=== PATIENT | female | born 1990 | race Caucasian/White ===

== ENCOUNTER 2017-01-08 10:52 | Inpatient (IN) | payer BC, OTHER ==
[2017-01-08] MEDS ORDERED: Misoprostol 25 MCG (1/4 of 100 MCG) Tab VAG PRN (12:10)
[2017-01-08] MEDS ORDERED: Terbutaline 1 MG/ML SDV SUBCUT PRN (12:10)
[2017-01-08] MEDS ORDERED: Butorphanol 1 MG/ML SDV IVPUSH PRN (12:15)
[2017-01-08] MEDS ORDERED: Sodium Chloride 0.9% 10 ML Syringe FLUSH PRN (12:15)
[2017-01-08] MEDS ORDERED: Lidocaine 1% 50 ML MDV INJECT PRN (12:15)
[2017-01-08] MEDS ORDERED: Lactated Ringers 1,000 ML IV SCH (12:15)
[2017-01-08] MEDS ORDERED: Oxytocin/0.9 % Sodium Chloride 30 UNIT/500 ML BAG IV SCH ×2 (12:15)
[2017-01-08] MEDS ORDERED: Sodium Chloride 0.9% 2.5 ML Syringe FLUSH PRN (12:15)
[2017-01-08] MEDS ORDERED: Methylergonovine 0.2 MG/1 ML Amp IM PRN (12:15)
[2017-01-08] MEDS ORDERED: Water For Irrigation,Sterile 1,000 ML Container IRR PRN (12:15)
[2017-01-08] MEDS ORDERED: Misoprostol 200 MCG Tab PO PRN (12:15)
[2017-01-08] MEDS ORDERED: Misoprostol 25 MCG (1/4 of 100 MCG) Tab PO SCH (12:15)
[2017-01-08] MEDS ORDERED: Nalbuphine 10 MG/1 ML Vial IVPUSH PRN (12:15)
[2017-01-08] MEDS ORDERED: Carboprost Tromethamine 250 MCG/1 ML Amp IM PRN (12:15)
[2017-01-08] MEDS ORDERED: Misoprostol 25 MCG (1/4 of 100 MCG) Tab VAG SCH (12:15)
[2017-01-08] MEDS: Sodium Chloride 0.9% 1,000 ML IV SCH ×3 (12:35→20:17)
[2017-01-08] MEDS ORDERED: fentaNYL 100 MCG/2 ML SDV ONE (18:53)
[2017-01-08] MEDS ORDERED: Ropivacaine HCl/PF 100 ML ONE (18:54)
[2017-01-08] MEDS ORDERED: Ropivacaine 0.2% 2 MG/ML 20 ML SDV ONE (18:55)
--- NOTE | 2017-01-08 19:57 | PCM.PREANE ---
Preanesthetic Assessment - Anesthesia/Transfusion/Family Hx Anesthesia History: Prior Anesthesia Without Reaction Family History of Anesthesia Reaction: No Transfusion History: No Prior Transfusion(s) - Review of Systems General: No Symptoms Pulmonary: No Symptoms Cardiovascular: No Symptoms Gastrointestinal: No Symptoms Neurological: No Symptoms Other: Reports: None - Physical Assessment Height: 1.52 m Weight: 87.09 kg ASA Class: 2 Mental Status: Alert & Oriented x3 Airway Class: Mallampati = 2 Dentition: Reports: Normal Dentition - Lab Values: Laboratory Last Values WBC 17.02 K/uL (4.0-11.0) H 01/08/17 12:33 RBC 4.37 M/uL (4.30-5.90) 01/08/17 12:33 Hgb 13.0 g/dL (12.0-16.0) 01/08/17 12:33 Hct 39.0 % (36.0-46.0) 01/08/17 12:33 MCV 89.2 fL (80.0-98.0) 01/08/17 12:33 MCH 29.7 pg (27.0-32.0) 01/08/17 12:33 MCHC 33.3 g/dL (31.0-37.0) 01/08/17 12:33 RDW Std Deviation 49.3 fl (28.0-62.0) 01/08/17 12:33 RDW Coeff of Leena 15 % (11.0-15.0) 01/08/17 12:33 Plt Count 236 K/uL (150-400) 01/08/17 12:33 MPV 12.40 fL (7.40-12.00) H 01/08/17 12:33 Nucleated RBC % 0.0 /100WBC 01/08/17 12:33 Nucleated RBCs # 0 K/uL 01/08/17 12:33 POC Glucose 71 mg/dL (60-110) 01/08/17 18:15 Membrane Rupture POSITIVE 01/08/17 11:02 Blood Type O POSITIVE 01/08/17 12:33 Antibody Screen NEGATIVE 01/08/17 12:33 - Allergies Allergies/Adverse Reactions: Allergies Allergy/AdvReac Type Severity Reaction Status Date / Time Penicillins Allergy Hives Verified 01/08/17 10:59 - Acknowledgements Anesthesia Type Planned: Epidural Pt an Appropriate Candidate for the Planned Anesthesia: Yes Alternatives and Risks of Anesthesia Discussed w Pt/Guardian: Yes Pt/Guardian Understands and Agrees with Anesthesia Plan: Yes Additional Comments: Patient denies any concerns or questions at this time and agrees to proceed. 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: Endocrine/Metabolic History: Reports: Diabetes, Gestational - Past Surgical History HEENT Surgical History: Reports: Adenoidectomy - SUBSTANCE USE Smoking Status *Q: Never Smoker - CURRENT (IN HOUSE) MEDS Current Meds: Current Medications Butorphanol Tartrate (Stadol) 1 mg IVPUSH Q1H PRN PRN Reason: Pain Last Admin: 01/08/17 17:31 Dose: 1 mg Carboprost Tromethamine (Hemabate Ds) 250 mcg IM ASDIRECTED PRN PRN Reason: Post Hemorrhage Oxytocin/Sodium Chloride (Oxytocin 30 Unit/500 Ml-Ns) 30 unit in 500 mls @ 2 mls/hr IV TITRATE PARKER; 2 MUNITS/MIN PRN Reason: Protocol Last Titration: 01/08/17 19:47 Dose: 2 munits/min, 2 mls/hr Oxytocin/Sodium Chloride (Oxytocin 30 Unit/500 Ml-Ns) 30 unit in 500 mls @ 999 mls/hr IV TITRATE PARKER Sodium Chloride (Normal Saline) 1,000 mls @ 80 mls/hr IV ASDIRECTED PARKER Last Admin: 01/08/17 19:03 Dose: 999 mls/hr Lidocaine HCl (Xylocaine 1%) 50 ml INJECT .ONCE PRN PRN Reason: Laceration repair Methylergonovine Maleate (Methergine) 0.2 mg IM ASDIRECTED PRN PRN Reason: Post Hemorrhage Misoprostol (Cytotec) 25 mcg VAG .ONCE PARKER Last Admin: 01/08/17 13:09 Dose: 25 mcg Misoprostol (Cytotec) 25 mcg VAG Q4H PRN PRN Reason: Cervical Ripening Misoprostol (Cytotec) 25 mcg PO .ONCE PARKER Last Admin: 01/08/17 13:16 Dose: 25 mcg Misoprostol (Cytotec) 200 mcg PO .ONCE PRN PRN Reason: Post Hemorrhage Nalbuphine HCl (Nubain) 10 mg IVPUSH Q1H PRN PRN Reason: Pain (severe 7-10) Sodium Chloride (Saline Flush) 10 ml FLUSH ASDIRECTED PRN PRN Reason: Keep Vein Open Sodium Chloride (Saline Flush) 2.5 ml FLUSH ASDIRECTED PRN PRN Reason: Keep Vein Open Sterile Water (Sterile Water For Irrigation) 1,000 ml IRR ASDIRECTED PRN PRN Reason: delivery Terbutaline Sulfate (Brethine) 0.25 mg SUBCUT ASDIRECTED PRN PRN Reason: Tacysystole Discontinued Medications Fentanyl (Sublimaze) Confirm Administered Dose 300 mcg .ROUTE .STK-MED ONE Stop: 01/08/17 18:54 Lactated Ringer's (Ringers, Lactated) 1,000 mls @ 150 mls/hr IV ASDIRECTED PARKER Ropivacaine (Naropin 0.2%) Confirm Administered Dose 100 mls @ as directed .ROUTE [facility] Stop: 01/08/17 18:55 Ropivacaine (Naropin 0.2%) Confirm Administered Dose 20 ml .ROUTE .STK-MED ONE Stop: 01/08/17 18:56
[2017-01-08] MEDS ORDERED: Bupivacaine 0.5% 10 ML SDV ONE (21:35)
[2017-01-08] MEDS ORDERED: Ondansetron 4 MG/2 ML SDV ONE (21:50)
[2017-01-08] MEDS ORDERED: Oxytocin 10 Units/1 ML SDV ONE (21:50)
[2017-01-08] MEDS ORDERED: Morphine PF 10 MG/10 ML SDV ONE (21:54)
[2017-01-08] MEDS ORDERED: ceFAZolin 2 GM in Premix Bag 1 BAG IV ONE (23:02)
[2017-01-08] MEDS ORDERED: Citric Acid/Sodium Citrate Solution 30 ML Cup PO SCH (23:15)
[2017-01-08] MEDS ORDERED: Phenylephrine/Normal Saline 100 MCG/ML 10 ML Syringe ONE (23:46)
[2017-01-08] MEDS ORDERED: diphenhydrAMINE 50 MG/ML SDV IVPUSH PRN (23:59)
[2017-01-08] MEDS ORDERED: Naloxone 0.4 MG/ML Syringe IVPUSH PRN (23:59)
[2017-01-09] MEDS ORDERED: Nalbuphine 10 MG/1 ML Vial IVPUSH PRN (00:02)
[2017-01-09] MEDS ORDERED: Lanolin 100% Cream 7 GM Tube TOP PRN (01:09)
[2017-01-09] MEDS ORDERED: Bisacodyl 10 MG Supp RECTAL PRN (01:09)
[2017-01-09] MEDS ORDERED: Ondansetron 4 MG/2 ML SDV IV PRN (01:09)
[2017-01-09] MEDS ORDERED: Sodium Chloride 0.9% 2.5 ML Syringe FLUSH PRN (01:09)
[2017-01-09] MEDS ORDERED: Sodium Chloride 0.9% 10 ML Syringe FLUSH PRN (01:09)
[2017-01-09] MEDS ORDERED: Ibuprofen 800 MG Tab PO PRN (01:09)
[2017-01-09] MEDS ORDERED: Acetaminophen/oxyCODONE 325-5 MG Tab PO PRN ×2 (01:09)
[2017-01-09] MEDS ORDERED: diphenhydrAMINE 50 MG/ML SDV IVPUSH PRN (01:09)
[2017-01-09] MEDS ORDERED: Lactated Ringers 1,000 ML IV SCH (01:15)
--- NOTE | 2017-01-09 01:21 | PCM.POSTAN ---
POST ANESTHESIA ASSESSMENT - MENTAL STATUS Mental Status: Alert, Oriented - RESPIRATORY Respiratory Status: Respiratory Rate WNL, Airway Patent, O2 Saturation Stable - CARDIOVASCULAR CV Status: Pulse Rate WNL, Blood Pressure Stable - GASTROINTESTINAL GI Status: No Symptoms - POST OP HYDRATION Hydration Status: Adequate & Stable
[2017-01-09] MEDS: Ketorolac 30 MG/ML SDV IVPUSH SCH ×4 (01:39→19:01)
--- NOTE | 2017-01-09 04:24 | OR ---
SURGEON: Adriana Dougherty MD DATE OF PROCEDURE: 01/08/2017 PREOPERATIVE DIAGNOSES: 1. Term at 39 weeks and 2 days. 2. intolerance to labor. 3. Gestational diabetes type A2, controlled with glyburide. 4. Polyhydramnios. POSTOPERATIVE DIAGNOSES: 1. Term at 39 weeks and 2 days. 2. intolerance to labor. 3. Gestational diabetes type A2, controlled with glyburide. 4. Polyhydramnios. 5. Delivered. PROCEDURE: Primary low transverse section via Pfannenstiel ANESTHESIA: Epidural. ESTIMATED BLOOD LOSS: 500 mL. IV FLUIDS: 2000mLs of Crystalloids COMPLICATIONS: None. DISPOSITION: Stable to recovery room. FINDINGS: Female infant, weight 3630 grams, score 8 and 9 at 1 and 5 minutes respectively. Grossly normal placenta with 3-vessel cord. Slightly meconium- stained amniotic fluid. No nuchal cord. Normal appearing uterus, tubes and ovaries BRIEF HISTORY: Radha is a primigravida, who presents at 39 weeks and 2 days for induction of labor secondary to gestational diabetes complicated by polyhydramnios.Her diabetes was controlled with glyburide, normal antepartum surveillance. GBS negative. On presentation on the afternoon of the , she complained of leakage of clear fluid since around 10:30 a.m. Spontaneous rupture of membranes was confirmed with positive AmniSure and pooling of amniotic fluid. Induction of labor was commenced with Cytotec for cervical ripening followed by Pitocin infusion as per protocol. Unfortunately, baby could not tolerate upward titration of the Pitocin and it had to be turned off a few times due to recurrent late decelerations. The maximum dose of Pitocin was 4 milliunits per minute with maximum cervical dilatation 3 cm. Also of note, some slightly meconium-stained amniotic fluid. She remained euglycemic throughout the intrapartum period. Due to intolerance of labor, section was called. Appropriate consent was obtained. DESCRIPTION OF PROCEDURE: The patient was taken to the operating room where her epidural was topped up and was found to be adequate. She was placed in dorsal supine position with a leftward tilt. She was prepped and draped in normal sterile fashion for section. Appropriate time-out was held. She received Ancef 2 g IV. A Pfannenstiel skin incision was made and carried through to the underlying fascia with the Bovie. The fascia was extended laterally with the Bovie. The rectus muscle was in the midline and the peritoneal cavity was entered bluntly. The partial peritoneum was was further extended by stretching laterally. An Dar O self- retaining retractor was then placed into the abdominal cavity. The vesicouterine peritoneum was identified, picked up with pickups, and entered sharply with the Metzenbaum scissors and a bladder flap was created digitally. The lower uterine segment was incised transversely with a scalpel, this incision was further extended upwards and downwards by blunt dissection. The head was then delivered atraumatically followed by the shoulders and the rest of the body without difficulty. Baby was vigorous and cried spontaneously at . Cord was double clamped and cut and the was handed over to the awaiting edger operator, Dr. Davis. Cord blood and gas samples were obtained. Placenta was delivered spontaneously. The uterus was cleaned of all clots and debris. The uterine incision was closed in 2 layers using 0 Vicryl suture, first layer was closed in a running locked fashion and a second imbricating layer was performed to obtain excellent hemostasis. Couple of [id number] hemostatic stitches were placed using of 0 Monocryl suture to achieve complete hemostasis. The gutters were cleaned of all clots and debris. Copious irrigation was performed. Ovaries and tubes were identified bilaterally and appeared normal. The Dar O retractor was removed. The peritoneum was then closed with 2-0 Vicryl suture in a running fashion. The subfacial layer was irrigated and found to be hemostatic. The fascia was closed with 0 Vicryl in a running fashion. Subcuticular layer was made hemostatic with electrocautery and was the approximated with 3-0 plain suture. Skin was closed with 4-0 Monocryl using subcuticular stitches. The patient tolerated the procedure well. Sponge, instrument, and needle counts were correct at the end of the delivery. The patient was taken to the recovery room in a stable condition. The baby was taken to the nursery in a stable condition. ALICIA / JANNET /[id number] ANDRA
[2017-01-09] MEDS: Docusate Sodium 100 MG Cap PO SCH (08:57)
--- NOTE | 2017-01-09 13:21 | PCM.PNPP ---
- General Info Date of Service: 01/09/17 Functional Status: Reports: Pain Controlled, Tolerating Diet, Ambulating, Urinating - Review of Systems General: Denies: Fever, Weakness, Malaise, Chills HEENT: Denies: Headaches Pulmonary: Denies: Shortness of Breath, Pleuritic Chest Pain, Cough Cardiovascular: Denies: Chest Pain, Palpitations, Dyspnea on Exertion Gastrointestinal: Denies: Abdominal Pain Genitourinary: Denies: Dysuria, Incontinence, Flank Pain Neurological: Denies: Confusion Psychiatric: Denies: Confusion, Mood Lability, Anxiety - General Info Date of Service: 01/09/17 - Patient Data Vital Signs - Most Recent: Last Vital Signs Temp 36.9 C 01/09/17 09:44 Pulse 114 H 01/09/17 12:16 Resp 16 01/09/17 12:16 BP 128/81 01/09/17 12:16 Pulse Ox 97 01/09/17 12:16 Weight - Most Recent: 192 lb I&O - Last 24 Hours: Intake & Output 01/08/17 01/09/17 01/09/17 22:59 06:59 14:59 Intake Total 2050 Output Total 450 300 Balance 1600 -300 Lab Results - Last 24 Hours: Laboratory Results - last 24 hr 01/08/17 01/08/17 01/08/17 Range/Units 12:33 14:12 17:09 POC Glucose 44 L 50 L (60-110) mg/dL Blood Type O POSITIVE Antibody Screen NEGATIVE 01/08/17 01/08/17 01/08/17 Range/Units 18:15 20:03 21:06 POC Glucose 71 102 97 (60-110) mg/dL Blood Type Antibody Screen 01/08/17 Range/Units 22:36 POC Glucose 83 (60-110) mg/dL Blood Type Antibody Screen Med Orders - Current: Current Medications Bisacodyl (Dulcolax) 10 mg RECTAL .ONCE PRN PRN Reason: Constipation Diphenhydramine HCl (Benadryl) 25 mg IVPUSH Q4H PRN PRN Reason: Itching Stop: 01/10/17 00:02 Diphenhydramine HCl (Benadryl) 25 mg IVPUSH Q6H PRN PRN Reason: Itching or Nausea Docusate Sodium (Colace) 100 mg PO BID PARKER Last Admin: 01/09/17 08:57 Dose: 100 mg Emollient Ointment (Lansinoh Hpa) 0 gm TOP ASDIRECTED PRN PRN Reason: Sore Nipples Lactated Ringer's (Ringers, Lactated) 1,000 mls @ 125 mls/hr IV ASDIRECTED PARKER Last Admin: 01/09/17 04:55 Dose: 125 mls/hr Ibuprofen (Motrin) 800 mg PO Q8H PRN PRN Reason: mild pain or fever Ketorolac Tromethamine (Toradol) 30 mg IVPUSH Q6H [facility] Stop: 01/10/17 01:16 [employer] Last Admin: 01/09/17 07:26 Dose: 30 mg Naloxone HCl (Narcan) 0.1 mg IVPUSH ONETIME PRN PRN Reason: Respiratory Depression Stop: 01/09/17 23:59 Ondansetron HCl (Zofran) 4 mg IV Q4H PRN PRN Reason: Nausea/Vomiting Oxycodone/Acetaminophen (Percocet 325-5 Mg) 1 tab PO Q4H PRN PRN Reason: Pain (moderate 4-6) Oxycodone/Acetaminophen (Percocet 325-5 Mg) 2 tab PO Q4H PRN PRN Reason: Pain (moderate 4-6) Sodium Chloride (Saline Flush) 10 ml FLUSH ASDIRECTED PRN PRN Reason: Keep Vein Open Sodium Chloride (Saline Flush) 2.5 ml FLUSH ASDIRECTED PRN PRN Reason: Keep Vein Open Discontinued Medications Bupivacaine HCl (Sensorcaine-Mpf 0.5%) Confirm Administered Dose 20 ml .ROUTE .STK-MED ONE Stop: 01/08/17 21:36 Butorphanol Tartrate (Stadol) 1 mg IVPUSH Q1H PRN PRN Reason: Pain Last Admin: 01/08/17 17:31 Dose: 1 mg Carboprost Tromethamine (Hemabate Ds) 250 mcg IM ASDIRECTED PRN PRN Reason: Post Hemorrhage Citric Acid/Sodium Citrate (Bicitra Solution) 30 ml PO .ONCE [facility] Fentanyl (Sublimaze) Confirm Administered Dose 300 mcg .ROUTE .STK-MED ONE Stop: 01/08/17 18:54 Oxytocin/Sodium Chloride (Oxytocin 30 Unit/500 Ml-Ns) 30 unit in 500 mls @ 2 mls/hr IV TITRATE PARKER; 2 MUNITS/MIN PRN Reason: Protocol Last Titration: 01/08/17 19:56 Dose: 0 munits/min, 0 mls/hr Lactated Ringer's (Ringers, Lactated) 1,000 mls @ 150 mls/hr IV ASDIRECTED [facility] Oxytocin/Sodium Chloride (Oxytocin 30 Unit/500 Ml-Ns) 30 unit in 500 mls @ 999 mls/hr IV TITRATE PARKER Sodium Chloride (Normal Saline) 1,000 mls @ 80 mls/hr IV ASDIRECTED PARKER Last Admin: 01/08/17 20:17 Dose: 80 mls/hr Ropivacaine (Naropin 0.2%) Confirm Administered Dose 100 mls @ as directed .ROUTE .STK-MED ONE Stop: 01/08/17 18:55 Cefazolin Sodium/Dextrose 2 gm (/ Premix) 50 mls @ 100 mls/hr IV ONETIME ONE Stop: 01/08/17 23:31 Lidocaine HCl (Xylocaine 1%) 50 ml INJECT .ONCE PRN PRN Reason: Laceration repair Methylergonovine Maleate (Methergine) 0.2 mg IM ASDIRECTED PRN PRN Reason: Post Hemorrhage Misoprostol (Cytotec) 25 mcg VAG .ONCE [facility] Last Admin: 01/08/17 13:09 Dose: 25 mcg Misoprostol (Cytotec) 25 mcg VAG Q4H PRN PRN Reason: Cervical Ripening Misoprostol (Cytotec) 25 mcg PO .ONCE [facility]ARKER Last Admin: 01/08/17 13:16 Dose: 25 mcg Misoprostol (Cytotec) 200 mcg PO .ONCE PRN PRN Reason: Post Hemorrhage Morphine Sulfate (Duramorph Pf) Confirm Administered Dose 10 mg .ROUTE .STK-MED ONE Stop: 01/08/17 21:55 Nalbuphine HCl (Nubain) 10 mg IVPUSH Q1H PRN PRN Reason: Pain (severe 7-10) Nalbuphine HCl (Nubain) 5 mg IVPUSH Q3H PRN PRN Reason: Pain (severe 7-10) Ondansetron HCl (Zofran) Confirm Administered Dose 4 mg .ROUTE .STK-MED ONE Stop: 01/08/17 21:51 Oxytocin (Pitocin) Confirm Administered Dose 20 unit .ROUTE .STK-MED ONE Stop: 01/08/17 21:51 Phenylephrine HCl (Phenylephrine In Ns 100 Mcg/Ml) Confirm Administered Dose 1 mg .ROUTE .STK-MED ONE Stop: 01/08/17 23:47 Ropivacaine (Naropin 0.2%) Confirm Administered Dose 20 ml .ROUTE .STK-MED ONE Stop: 01/08/17 18:56 Sodium Chloride (Saline Flush) 10 ml FLUSH ASDIRECTED PRN PRN Reason: Keep Vein Open Sodium Chloride (Saline Flush) 2.5 ml FLUSH ASDIRECTED PRN PRN Reason: Keep Vein Open Sterile Water (Sterile Water For Irrigation) 1,000 ml IRR ASDIRECTED PRN PRN Reason: delivery Terbutaline Sulfate (Brethine) 0.25 mg SUBCUT ASDIRECTED PRN PRN Reason: Tacysystole - Interaction Infant Disposition, : in Room with Family Interaction: Holding Infant Feeding: Attempted ; Nursed Fair/Poor, Continues to Breastfeed, Encouraged to Breastfeed Support Person: , Mother - Recovery Exam Fundal Tone: Firm Fundal Level: 1 Fingerbreadths Below Umbilicus Fundal Placement: Midline Lochia Amount: Scant Lochia Color: Rubra/Red Bladder Status: Voiding Urinary Elimination: Voided - Exam General: Alert, Oriented HEENT: Pupils Equal Neck: Supple Lungs: Clear to Auscultation, Normal Respiratory Effort Cardiovascular: Regular Rate, Regular Rhythm GI/Abdominal Exam: Normal Bowel Sounds, Soft, Non-Tender Extremities: Non-Tender, Pedal Edema Wound/Incisions: Healing Well Psy/Mental Status: Alert, Normal Affect, Normal Mood - Problem List & Annotations (1) delivery delivered SNOMED Code(s): 531138602 Code(s): O82 - ENCOUNTER FOR DELIVERY WITHOUT INDICATION Status: Acute Current Visit: Yes (2) Gestational diabetes SNOMED Code(s): 85079949 Code(s): O24.419 - GESTATIONAL DIABETES MELLITUS IN , UNSP CONTROL Status: Acute Current Visit: Yes Qualifiers: Gestational diabetes mellitus control: oral hypoglycemic-controlled Trimester: third trimester Qualified Code(s): O24.415 - Gestational diabetes mellitus in , controlled by oral hypoglycemic drugs - Problem List Review Problem List Initiated/Reviewed/Updated: Yes - My Orders Last 24 Hours: My Active Orders 01/08/17 23:02 Non Stress Test [RC] PER UNIT ROUTINE Notify Provider Vital Signs [RC] PRN Procedure Site Prep Instruct [RC] ASDIRECTED Up ad Marta [RC] ASDIRECTED Verify Patient Consent Obtain [RC] ASDIRECTED Vital Signs [RC] PER UNIT ROUTINE 01/09/17 01:09 Patient Status [ADT] Routine Ambulate [RC] PER UNIT ROUTINE Bedrest [RC] ASDIRECTED Communication Order [RC] PER UNIT ROUTINE Communication Order [RC] PER UNIT ROUTINE Communication Order [RC] Per Unit Routine May Shower [RC] ASDIRECTED RT Incentive Spirometry [RC] Q2HWA Urinary Catheter Removal [RC] Per Unit Routine Vital Signs [RC] PER UNIT ROUTINE Acetaminophen/oxyCODONE [Percocet 325-5 MG] 1 tab PO Q4H PRN Acetaminophen/oxyCODONE [Percocet 325-5 MG] 2 tab PO Q4H PRN Bisacodyl [Dulcolax] 10 mg RECTAL .ONCE PRN Ibuprofen [Motrin] 800 mg PO Q8H PRN Lanolin [Lansinoh HPA] See Dose Instructions TOP ASDIRECTED PRN Ondansetron [Zofran] 4 mg IV Q4H PRN Sodium Chloride 0.9% [Saline Flush] 10 ml FLUSH ASDIRECTED PRN Sodium Chloride 0.9% [Saline Flush] 2.5 ml FLUSH ASDIRECTED PRN diphenhydrAMINE [Benadryl] 25 mg IVPUSH Q6H PRN Abdominal Binder [OM.PC] Routine Assess Lochia [WOMSER] Per Unit Routine Assess Uterine Involution [WOMSER] Per Unit Routine Breast Pump [WOMSER] Per Unit Routine Peripheral IV Discontinue [OM.PC] Routine Saline Lock Insert [OM.PC] Routine Sequential Compression Device [OM.PC] Per Unit Routine Resuscitation Status Routine 01/09/17 01:10 Antiembolic Devices [RC] PER UNIT ROUTINE Intake and Output [RC] Q4H 01/09/17 01:11 Notify Provider Intake and Out [RC] ASDIRECTED Notify Provider Vital Signs [RC] ASDIRECTED 01/09/17 01:15 Ketorolac [Toradol] 30 mg IVPUSH Q6H Lactated Ringers [Ringers, Lactated] 1,000 ml IV ASDIRECTED 01/09/17 09:00 Docusate Sodium [Colace] 100 mg PO BID 01/09/17 Breakfast Regular Diet [DIET] 01/10/17 05:11 HEMOGLOBIN/HEMATOCRIT,HH [HEME] Timed - Assessment Assessment:: POD#1 s/p LTCS for intolerance to labor, stable and afebril - Plan Plan:: Continue routine /post op care. Aim for discharge tomorrow
--- NOTE | 2017-01-09 23:22 | PCM48HPAN ---
Post Anesthesia Note - EVALUATION WITHIN 48HRS OF ANESTHETIC Vital Signs in Normal Range: Yes Patient Participated in Evaluation: Yes Respiratory Function Stable: Yes Airway Patent: Yes Cardiovascular Function Stable: Yes Hydration Status Stable: Yes Pain Control Satisfactory: Yes Nausea and Vomiting Control Satisfactory: Yes Mental Status Recovered: Yes - COMMENTS/OBSERVATIONS Free Text/Narrative:: Denies any complaints at this time. Doing well.
[2017-01-10] MEDS: Ketorolac 30 MG/ML SDV IVPUSH SCH (01:34)
[2017-01-10] MEDS: Docusate Sodium 100 MG Cap PO SCH ×2 (07:41→08:32)
--- NOTE | 2017-01-10 12:15 | PCM.PNPP ---
- General Info Date of Service: 01/10/17 Functional Status: Reports: Pain Controlled, Tolerating Diet, Ambulating, Urinating - Review of Systems General: Denies: Fever, Malaise, Chills HEENT: Denies: Headaches, Visual Changes Pulmonary: Denies: Shortness of Breath, Pleuritic Chest Pain, Cough Cardiovascular: Reports: Edema. Denies: Chest Pain, Palpitations, Dyspnea on Exertion Gastrointestinal: Denies: Abdominal Pain, Nausea Genitourinary: Denies: Dysuria, Incontinence, Flank Pain Psychiatric: Denies: Depression, Mood Lability, Anxiety - General Info Date of Service: 01/10/17 - Patient Data Vital Signs - Most Recent: Last Vital Signs Temp 37.0 C 01/10/17 07:00 Pulse 97 01/10/17 07:00 Resp 16 01/10/17 07:00 BP 112/84 01/10/17 07:00 Pulse Ox 97 01/10/17 07:00 Weight - Most Recent: 192 lb I&O - Last 24 Hours: Intake & Output 01/09/17 01/10/17 01/10/17 23:59 06:59 14:59 Output Total Balance Lab Results - Last 24 Hours: Laboratory Results - last 24 hr 01/10/17 Range/Units 05:07 Hgb 9.3 L (12.0-16.0) g/dL Hct 28.5 L (36.0-46.0) % Med Orders - Current: Current Medications Bisacodyl (Dulcolax) 10 mg RECTAL .ONCE PRN PRN Reason: Constipation Diphenhydramine HCl (Benadryl) 25 mg IVPUSH Q6H PRN PRN Reason: Itching or Nausea Docusate Sodium (Colace) 100 mg PO BID [facility] Last Admin: 01/10/17 08:32 Dose: 100 mg Emollient Ointment (Lansinoh Hpa) 0 gm TOP ASDIRECTED PRN PRN Reason: Sore Nipples Lactated Ringer's (Ringers, Lactated) 1,000 mls @ 125 mls/hr IV ASDIRECTED [facility] Last Admin: 01/09/17 04:55 Dose: 125 mls/hr Ibuprofen (Motrin) 800 mg PO Q8H PRN PRN Reason: mild pain or fever Last Admin: 01/10/17 08:43 Dose: 800 mg Ondansetron HCl (Zofran) 4 mg IV Q4H PRN PRN Reason: Nausea/Vomiting Oxycodone/Acetaminophen (Percocet 325-5 Mg) 1 tab PO Q4H PRN PRN Reason: Pain (moderate 4-6) Last Admin: 01/10/17 00:08 Dose: 1 tab Oxycodone/Acetaminophen (Percocet 325-5 Mg) 2 tab PO Q4H PRN PRN Reason: Pain (moderate 4-6) Sodium Chloride (Saline Flush) 10 ml FLUSH ASDIRECTED PRN PRN Reason: Keep Vein Open Sodium Chloride (Saline Flush) 2.5 ml FLUSH ASDIRECTED PRN PRN Reason: Keep Vein Open Discontinued Medications Bupivacaine HCl (Sensorcaine-Mpf 0.5%) Confirm Administered Dose 20 ml .ROUTE .STK-MED ONE Stop: 01/08/17 21:36 Butorphanol Tartrate (Stadol) 1 mg IVPUSH Q1H PRN PRN Reason: Pain Last Admin: 01/08/17 17:31 Dose: 1 mg Carboprost Tromethamine (Hemabate Ds) 250 mcg IM ASDIRECTED PRN PRN Reason: Post Hemorrhage Citric Acid/Sodium Citrate (Bicitra Solution) 30 ml PO .ONCE PARKER Diphenhydramine HCl (Benadryl) 25 mg IVPUSH Q4H PRN PRN Reason: Itching Stop: 01/10/17 00:02 Fentanyl (Sublimaze) Confirm Administered Dose 300 mcg .ROUTE .STK-MED ONE Stop: 01/08/17 18:54 Oxytocin/Sodium Chloride (Oxytocin 30 Unit/500 Ml-Ns) 30 unit in 500 mls @ 2 mls/hr IV TITRATE PARKER; 2 MUNITS/MIN PRN Reason: Protocol Last Titration: 01/08/17 19:56 Dose: 0 munits/min, 0 mls/hr Lactated Ringer's (Ringers, Lactated) 1,000 mls @ 150 mls/hr IV ASDIRECTED PARKER Oxytocin/Sodium Chloride (Oxytocin 30 Unit/500 Ml-Ns) 30 unit in 500 mls @ 999 mls/hr IV TITRATE PARKER Sodium Chloride (Normal Saline) 1,000 mls @ 80 mls/hr IV ASDIRECTED PARKER Last Admin: 01/08/17 20:17 Dose: 80 mls/hr Ropivacaine (Naropin 0.2%) Confirm Administered Dose 100 mls @ as directed .ROUTE .STK-MED ONE Stop: 01/08/17 18:55 Cefazolin Sodium/Dextrose 2 gm (/ Premix) 50 mls @ 100 mls/hr IV ONETIME ONE Stop: 01/08/17 23:31 Ketorolac Tromethamine (Toradol) 30 mg IVPUSH Q6H PARKER Stop: 01/10/17 01:16 [employer]PERATIONS SUPPORT REPRESENTATIVE Last Admin: 01/10/17 01:34 CDT Dose: 30 mg Lidocaine HCl (Xylocaine 1%) 50 ml INJECT .ONCE PRN PRN Reason: Laceration repair Methylergonovine Maleate (Methergine) 0.2 mg IM ASDIRECTED PRN PRN Reason: Post Hemorrhage Misoprostol (Cytotec) 25 mcg VAG .ONCE [facility] Last Admin: 01/08/17 13:09 Dose: 25 mcg Misoprostol (Cytotec) 25 mcg VAG Q4H PRN PRN Reason: Cervical Ripening Misoprostol (Cytotec) 25 mcg PO .ONCE [facility] Last Admin: 01/08/17 13:16 Dose: 25 mcg Misoprostol (Cytotec) 200 mcg PO .ONCE PRN PRN Reason: Post Hemorrhage Morphine Sulfate (Duramorph Pf) Confirm Administered Dose 10 mg .ROUTE .STK-MED ONE Stop: 01/08/17 21:55 Nalbuphine HCl (Nubain) 10 mg IVPUSH Q1H PRN PRN Reason: Pain (severe 7-10) Nalbuphine HCl (Nubain) 5 mg IVPUSH Q3H PRN PRN Reason: Pain (severe 7-10) Naloxone HCl (Narcan) 0.1 mg IVPUSH ONETIME PRN PRN Reason: Respiratory Depression Stop: 01/09/17 23:59 Ondansetron HCl (Zofran) Confirm Administered Dose 4 mg .ROUTE .STK-MED ONE Stop: 01/08/17 21:51 Oxytocin (Pitocin) Confirm Administered Dose 20 unit .ROUTE .STK-MED ONE Stop: 01/08/17 21:51 Phenylephrine HCl (Phenylephrine In Ns 100 Mcg/Ml) Confirm Administered Dose 1 mg .ROUTE .STK-MED ONE Stop: 01/08/17 23:47 Ropivacaine (Naropin 0.2%) Confirm Administered Dose 20 ml .ROUTE .STCaktus-MED ONE Stop: 01/08/17 18:56 Sodium Chloride (Saline Flush) 10 ml FLUSH ASDIRECTED PRN PRN Reason: Keep Vein Open Sodium Chloride (Saline Flush) 2.5 ml FLUSH ASDIRECTED PRN PRN Reason: Keep Vein Open Sterile Water (Sterile Water For Irrigation) 1,000 ml IRR ASDIRECTED PRN PRN Reason: delivery Terbutaline Sulfate (Brethine) 0.25 mg SUBCUT ASDIRECTED PRN PRN Reason: Tacysystole - Interaction Infant Disposition, : in Room with Family Interaction: Holding Infant Feeding: Attempted ; Nursed Fair/Poor, Continues to Breastfeed, Encouraged to Breastfeed Support Person: , Mother - Recovery Exam Fundal Tone: Firm Fundal Level: At Umbilicus Fundal Placement: Midline Lochia Amount: Scant Lochia Color: Rubra/Red Perineum Description: Intact, Minimal Bruising/Swelling Bladder Status: Voiding Urinary Elimination: Voided - Exam General: Alert, Oriented HEENT: Pupils Equal Lungs: Clear to Auscultation, Normal Respiratory Effort Cardiovascular: Regular Rate, Regular Rhythm GI/Abdominal Exam: Normal Bowel Sounds Extremities: Non-Tender, Pedal Edema Skin: Warm Wound/Incisions: Healing Well Psy/Mental Status: Alert, Normal Affect, Normal Mood - Problem List & Annotations (1) delivery delivered SNOMED Code(s): 549827315 Code(s): O82 - ENCOUNTER FOR DELIVERY WITHOUT INDICATION Status: Acute Current Visit: Yes (2) Gestational diabetes SNOMED Code(s): 33250462 Code(s): O24.419 - GESTATIONAL DIABETES MELLITUS IN , UNSP CONTROL Status: Acute Current Visit: Yes Qualifiers: Gestational diabetes mellitus control: oral hypoglycemic-controlled Trimester: third trimester Qualified Code(s): O24.415 - Gestational diabetes mellitus in , controlled by oral hypoglycemic drugs - Problem List Review Problem List Initiated/Reviewed/Updated: Yes - Assessment Assessment:: POD#2 s/p LTCS for intolerance to labor, stable and afebrile Clinically stable for discharge today - Plan Plan:: Discharge instructions reviewed with patient Nothing in the vagina for 6 weeks Bleeding and infection control reviewed Incision care reviewed depression symptoms reviewed Continue PNV May use OTC medications for pain control Follow up in 2 and 6week For OGTT within 12 weeks of delivery
== END 2017-01-10 14:05 | disposition home or self-care (01) | DRG 540 ==
LOC: MW.OBCHECK 10:52 → MW.OB 10:53 → OBSVTOIN 23:02
PROVIDERS: ADMIT Obstetrics & Gynecology; ATTEND Obstetrics & Gynecology
PROC: 10D00Z1 Extraction of Products of Conception, Low, Open Approach (ICD-10-PCS; principal; 2017-01-08)
PROC: 3E0P7VZ Introduction of Hormone into Female Reproductive, Via Natural or Artificial Opening (ICD-10-PCS; 2017-01-08)
PROC: 3E0P3VZ Introduction of Hormone into Female Reproductive, Percutaneous Approach (ICD-10-PCS; 2017-01-08)
PROC: 10H073Z Insertion of Monitoring Electrode into Products of Conception, Via Natural or Artificial Opening (ICD-10-PCS; 2017-01-08)
DX: O42.02 Full-term premature rupture of membranes, onset of labor within 24 hours of rupture (principal); O24.425 Gestational diabetes mellitus in childbirth, controlled by oral hypoglycemic drugs; O40.3XX0 Polyhydramnios, third trimester, not applicable or unspecified; O76 Abnormality in fetal heart rate and rhythm complicating labor and delivery; Z3A.39 39 weeks gestation of pregnancy; Z37.0 Single live birth; O77.0 Labor and delivery complicated by meconium in amniotic fluid
CPT/HCPCS: 01967; 01968; 36415; 59025; 82962; 84112; 85014; 85018; 85027; 86850; 86900; 86901; 88307; A9270-GY; J0595; J0690; J1885; J2270; J2405; J2590; J7040; J7120